=== PATIENT | male | born 1980 | race Caucasian/White ===

== ENCOUNTER 2016-07-19 12:29 | Emergency (ER) | payer MEDICAID ==
[~2016-07-19] VITALS: Ht 177.8 cm; Wt 104.5 kg
[2016-07-19] MEDS ORDERED: FAMOTIDINE 20 MG/2 ML IVP ONE (13:00)
[2016-07-19] MEDS ORDERED: SODIUM CHLORIDE 0.9% 1,000ML IVBOLUS ONE (13:00)
[2016-07-19] MEDS ORDERED: MAALOX/HYOSCYAMINE/LIDOCAINE 45 ML BOTTLE PO ONE (13:00)
[2016-07-19] MEDS ORDERED: ONDANSETRON 2MG/ML, 2ML IVPush ONE (13:00)
[2016-07-19] MEDS ORDERED: SODIUM CHLORIDE FLUSH 10ML SYR IVF ONE (13:00)
[2016-07-19] MEDS ORDERED: FAMOTIDINE 20 MG/2 ML ONE (13:15)
[2016-07-19] MEDS ORDERED: MAALOX/HYOSCYAMINE/LIDOCAINE 45 ML BOTTLE ONE (13:15)
[2016-07-19] MEDS ORDERED: ONDANSETRON 2MG/ML, 2ML ONE (13:15)
[2016-07-19 13:37] LABS: BLOOD UREA NITROGEN 7 mg/dL (7-18)
[2016-07-19 13:41] LABS: ASPARTATE AMINO TRANSFERASE 23 U/L (15-37)
[2016-07-19 14:53] VITALS: BP 121/74
== END 2016-07-19 14:55 | disposition home or self-care (01) ==
LOC: ED 13:28
DX: R19.7 Diarrhea, unspecified (principal); R11.2 Nausea with vomiting, unspecified; R10.84 Generalized abdominal pain
CPT/HCPCS: 36415; 80053; 81003; 83690; 85025; 96361; 96374; 96375; 99285; J2405; J7030; S0028

== ENCOUNTER → 2019-12-22 | Outpatient (CLI) | payer MEDICAID ==
[~2019-12-22] MED LIST: OMNIPAQUE 350 MG/ML, 75ML BOTTLE ONE
== END | disposition home or self-care (01) ==
LOC: CFH 13:12
PROVIDERS: ATTEND Internal Medicine
DX: S22.41XD Multiple fractures of ribs, right side, subsequent encounter for fracture with routine healing (principal); R91.1 Solitary pulmonary nodule; M54.2 Cervicalgia; R04.2 Hemoptysis; R51.9 Headache, unspecified; G93.5 Compression of brain; K76.0 Fatty (change of) liver, not elsewhere classified; W13.2XXD Fall from, out of or through roof, subsequent encounter; Z72.0 Tobacco use
CPT/HCPCS: 70450; 71260; Q9967

== ENCOUNTER → 2020-03-01 | Outpatient (CLI) | payer MEDICAID | END | disposition home or self-care (01) | LOC: PETCFH 09:56 | PROVIDERS: ATTEND Internal Medicine | DX: R91.1 Solitary pulmonary nodule (principal) | CPT/HCPCS: 78815; A9552 ==

== ENCOUNTER → 2020-10-04 | Outpatient (CLI) | payer MEDICAID | END | disposition home or self-care (01) | LOC: CFH 06:49 | PROVIDERS: ATTEND Nurse Practitioner Family | DX: M50.30 Other cervical disc degeneration, unspecified cervical region (principal); M48.07 Spinal stenosis, lumbosacral region; M51.26 Other intervertebral disc displacement, lumbar region; R20.0 Anesthesia of skin; M48.02 Spinal stenosis, cervical region | CPT/HCPCS: 72141; 72148 ==